=== PATIENT | male | born 1940 | race Caucasian/White ===

== ENCOUNTER 2023-09-29 18:31 | Emergency (ER) | payer MEDICARE, OTHER ==
[2023-09-29 19:42] LABS: Influenza A by NAA Not Detected (NotDetected); Influenza B by NAA Not Detected (NotDetected); SARS-CoV-2 NAA Rapid Test Not Detected (NotDetected)
== END 2023-09-29 20:25 | disposition home or self-care (01) ==
LOC: MADERS 18:31
DX: J06.9 Acute upper respiratory infection, unspecified (principal); I10 Essential (primary) hypertension; E78.00 Pure hypercholesterolemia, unspecified; Z79.899 Other long term (current) drug therapy; Z87.891 Personal history of nicotine dependence; Z79.82 Long term (current) use of aspirin
CPT/HCPCS: 0240U; 71045